=== PATIENT | male | born 1950 | race Caucasian/White ===

== ENCOUNTER 2016-10-08 20:04 | Inpatient (IN) ==
[2016-10-08] MEDS ORDERED: ONDANSETRON ODT 4 MG TABLET PO STA (20:44)
[2016-10-08] MEDS ORDERED: HYDROmorphone 2 MG/1 ML VIAL IV STA (20:44)
[2016-10-08] MEDS ORDERED: ONDANSETRON 4 MG/2 ML VIAL ONE (20:51)
[2016-10-08] MEDS ORDERED: HYDROmorphone 2 MG/1 ML VIAL ONE (20:52)
[2016-10-08] MEDS ORDERED: ONDANSETRON 4 MG/2 ML VIAL IV STA (20:55)
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
[2016-10-08 21:02] LABS: Basophils % 0.3 % (0.0-0.8); Eosinophils # 0.1 10*3/uL (0.0-0.87); Eosinophils % 1.3 % (0.00-10.9); Hematocrit 26.2 VOL% (42.0-52.0); Hemoglobin 7.4 GM/DL (14.0-18.0); Immature Granulocytes % 0.7 %; Immature Granulocytes Absolute 0.07 #; Lymphocytes # 0.6 10*3/uL (1.4-4.0); Lymphocytes % 5.9 % (21.2-54.2); Mean Corpuscular HGB Conc 28.2 GM/DL (32-36); Mean Corpuscular Hemoglobin 19 PG (27-34); Mean Corpuscular Volume 67.4 FL (87-102); Mean Platelet Volume 10.4 FL (9.6-12.0); Monocytes # 0.6 10*3/uL (0.11-0.8); Monocytes % 6.2 % (1.7-12.7); Neutrophils % 85.6 % (38.7-73.9); Platelet Count 108 T/CUMM (130-400); Red Blood Count 3.89 MC/CUMM (3.8-5.5); Red Cell Distribution Width 20.3 % (9.3-17.3); White Blood Count 9.4 T/CUMM (4-12)
[2016-10-08 21:28] LABS: Albumin 3.1 G/DL (3.4-5.0); Bilirubin,Total 0.4 MG/DL (0.2-1.0); Calcium 8.7 MG/DL (8.5-10.1); Osmolality,Calculated 273.1 MOS/KG (273-304); Potassium 4.7 MMOL/L (3.5-5.1); Total Protein 6.7 G/DL (6.4-8.3)
[2016-10-08 21:49] LABS: Hypochromasia 2+; Ovalocytes Few; Poikilocytosis 1+; Tear Drop Cells Few
[2016-10-08 21:50] LABS: Microcytosis 2+; Platelet Estimate Decreased
[2016-10-08] MEDS ORDERED: ACETAMINOPHEN 325 MG TABLET PO PRN (21:50)
[2016-10-08] MEDS ORDERED: PROMETHAZINE 25 MG/1 ML VIAL IM PRN (21:50)
[2016-10-08] MEDS ORDERED: ONDANSETRON 4 MG/2 ML VIAL IV PRN (21:50)
[2016-10-08] MEDS ORDERED: SODIUM CHLORIDE 0.9% 1,000 ML IV SCH (22:00)
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
[2016-10-08] MEDS: HYDROmorphone 2 MG/1 ML VIAL IV PRN (23:33)
[2016-10-09] MEDS ORDERED: SODIUM CHLORIDE 0.9% 250 ML IV PRN (01:09)
[2016-10-09] MEDS: HYDROmorphone 2 MG/1 ML VIAL IV PRN ×3 (04:17→11:12)
--- NOTE | 2016-10-09 07:13 | XRay Report ---
Portable chest. Indication: Arrhythmia. Comparison: September 30, 2013. The heart is enlarged. There is calcific plaque present within the aortic knob. The pulmonary vasculature is normal. The lung carter are free of infiltrate. Calcified lymph node in the left hilum. Osseous structures are stable. Impression: Cardiomegaly. PROCEDURE INTERPRETED AT [facility] DEPARTMENT OF RADIOLOGY Final Report Signed by: Dr. Tana Rudolph
--- NOTE | 2016-10-09 07:25 | XRay Report ---
AP pelvis +2 views of the right hip. Indication: Injury with pain. There is an acute comminuted, displaced, and medially angulated fracture of the trochanteric portion of the right femur. The right femoral head remains well-seated within the acetabulum. There is an intramedullary chilo within the left femur. The osseous structures are diffusely demineralized. Degenerative changes are noted at both hips. Impression: Acute fracture of the right intertrochanteric femur. PROCEDURE INTERPRETED AT [facility] DEPARTMENT OF RADIOLOGY Final Report Signed by: Dr. Tana Rudolph
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
[2016-10-09] MEDS ORDERED: FUROSEMIDE 40 MG/4 ML VIAL IV ONE (08:30)
[2016-10-09] MEDS: CARVEDILOL 3.125 MG TABLET PO SCH ×2 (09:59→20:02)
[2016-10-09] MEDS: PANTOPRAZOLE 40 MG TABLET PO SCH (09:59)
--- NOTE | 2016-10-09 11:49 | EKG Report ---
Stationary ECG Study [facility] ER Test Date: 10/08/2016 9:37:14 PM Pat Name: SABI FAULKNER Department: Room: 322 Gender: M Set Rider: : 1950 Requested by: Venancio Gonzalez Order Number: [id number] Reading MD: BEV VILLALOBOS Intervals [place] Rate: 93 P: 47 SD: 156 QRS: -8 QRSD: 97 T: 92 QT: 363 QTc: 414 Interpretive Statements SINUS RHYTHM WITH FREQUENT VENTRICULAR PREMATURE COMPLEXES, trigeminy POSSIBLE SEPTAL MYOCARDIAL INFARCTION, OF INDETERMINATE AGE Electronically Signed On 10-09-16 13:43:26 CDT by BEV VILLALOBOS [email or web address]
[2016-10-09] MEDS ORDERED: HYDROmorphone 2 MG/1 ML VIAL IV PRN (12:43)
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
[2016-10-09] MEDS: ASPIRIN CHEW 81 MG TABLET PO SCH (14:09)
--- NOTE | 2016-10-09 14:32 | EKG Report ---
Stationary ECG Study [facility] Test Date: 10/09/2016 2:32:47 PM Pat Name: SABI FAULKNER Department: Room: 322 Gender: M Account Support Specialist: CORINNE : 1950 Requested by: Frankie Castaneda Order Number: [id number] Reading MD: BEV VILLALOBOS Intervals [place] Rate: 92 P: 46 MI: 184 QRS: -3 QRSD: 100 T: 80 QT: 345 QTc: 394 Interpretive Statements SINUS RHYTHM WITH FREQUENT VENTRICULAR PREMATURE COMPLEXES LEFT VENTRICULAR HYPERTROPHY AND ST-T CHANGE Electronically Signed On 10-10-16 06:28:19 CDT by BEV VILLALOBOS [email or web address]
[2016-10-09] MEDS ORDERED: NALOXONE 0.4 MG/ML VIAL ONE ×2 (15:07→15:17)
[2016-10-09 15:15] LABS: ABG Base Excess -1.3 MMOL/L (-2.5-2.5); ABG HCO3 32.9 MMOL/L (20-26); ABG Oxygen Saturation 88.2 % (95-100); ABG PO2 79.3 MM HG (80-95); ABG TCO2 37.4 MMOL/L (23-27)
[2016-10-09 15:23] LABS: ABG PH 6.969 (7.35-7.45)
[2016-10-09 15:24] LABS: ABG PCO2 146.6 MM HG (35-48)
[2016-10-09] MEDS ORDERED: ALBUTEROL 1.25 MG/3 ML NEB RESP TX PRN (15:41)
--- NOTE | 2016-10-09 15:52 | XRay Report ---
Portable chest. Indication: Shortness of breath. Comparison: October 08, 2016. The heart is mildly enlarged. The pulmonary vasculature is normal. The lung carter are clear. No pneumothorax or pleural effusion. Impression: Mild cardiomegaly. PROCEDURE INTERPRETED AT [facility] DEPARTMENT OF RADIOLOGY Final Report Signed by: Dr. Tana Rudolph
[2016-10-09] MEDS ORDERED: NALOXONE 0.4 MG/ML VIAL IV ONE (15:58)
[2016-10-09 17:12] LABS: Basophils % 0.2 % (0.0-0.8); Eosinophils % 0.3 % (0.00-10.9); Hemoglobin 8.7 GM/DL (14.0-18.0); Immature Granulocytes % 0.6 %; Lymphocytes # 0.5 10*3/uL (1.4-4.0); Mean Corpuscular HGB Conc 27.6 GM/DL (32-36); Mean Corpuscular Hemoglobin 20 PG (27-34); Mean Corpuscular Volume 73.8 FL (87-102); Monocytes # 1.1 10*3/uL (0.11-0.8); Neutrophils # 13.8 10*3/uL (1.4-7.4); Neutrophils % 88.9 % (38.7-73.9); Platelet Count 158 T/CUMM (130-400); Red Blood Count 4.27 MC/CUMM (3.8-5.5); Red Cell Distribution Width 20.3 % (9.3-17.3); White Blood Count 15.5 T/CUMM (4-12)
[2016-10-09 17:13] LABS: Hematocrit 31.5 VOL% (42.0-52.0)
[2016-10-09 17:19] LABS: Albumin 3.1 G/DL (3.4-5.0); Bilirubin,Total 1.1 MG/DL (0.2-1.0); Calcium 8.4 MG/DL (8.5-10.1); Magnesium 1.7 MG/DL (1.8-2.4); Osmolality,Calculated 272.2 MOS/KG (273-304); Potassium 5.4 MMOL/L (3.5-5.1); Risk Ratio 2.45; Thyroid Stimulating Hormone 0.684 uIU/ml (0.358-3.74)
[2016-10-09] MEDS ORDERED: MAGNESIUM SULF RIDER 2 GM in PREMIX 1 EACH IV ONE (17:23)
[2016-10-09] MEDS ORDERED: SODIUM CHLORIDE 0.45% 1,000 ML IV SCH (17:30)
--- NOTE | 2016-10-09 17:40 | Event Note ---
Mr. Dueñas, earlier in the day had increasing pain for which she received IV Dilaudid. Later he became less responsive with dropping O2 sats and received increasing oxygen followed by Narcan from which he awakened. Chest x-ray revealed no significant changes however arterial blood gases revealed significant CO2 retention with respiratory acidosis. He was placed on BiPAP however on my arrival to the room he is sitting up in the bed comfortable with O2 per nasal cannula. He is awake alert and oriented 3. He denies any chest pain or shortness of breath. On physical exam he has regular rate and rhythm without murmur. Lungs reveal scattered expiratory wheeze. Abdomen soft nontender. Extremities without clubbing cyanosis or edema. Follow-up arterial blood gases are pending at this time. Suspect this earlier episode was secondary to sedation with probable obstructive sleep apnea/OHS. He likely has a component of COPD as well. We will continue low-dose O2 along with nebulizer therapy. BiPAP as needed. Pulmonary has been consulted to assist with his care and management preop and postoperatively.
[2016-10-09] MEDS: SODIUM CHLORIDE 0.9% 1,000 ML IV SCH (18:11)
[2016-10-09 18:53] LABS: ABG Base Excess 1.4 MMOL/L (-2.5-2.5); ABG HCO3 28.6 MMOL/L (20-26); ABG Oxygen Saturation 94.3 % (95-100); ABG PCO2 60.2 MM HG (35-48); ABG PH 7.294 (7.35-7.45); ABG PO2 73.5 MM HG (80-95); ABG TCO2 30.4 MMOL/L (23-27); Allen Test Positive; Pt O2 Delivery Device BIPAP
[2016-10-09] MEDS: IPRATROPIUM 500 MCG/2.5 ML NEB RESP TX SCH (20:29)
[2016-10-09] MEDS: KETOROLAC 30 MG/1 ML VIAL IV PRN (21:06)
[2016-10-10] MEDS: IPRATROPIUM 500 MCG/2.5 ML NEB RESP TX SCH ×4 (00:52→19:25)
[2016-10-10] MEDS: SODIUM CHLORIDE 0.9% 1,000 ML IV SCH ×4 (03:49→23:06)
[2016-10-10 06:13] LABS: Osmolality,Calculated 271.4 MOS/KG (273-304); Potassium 5.2 MMOL/L (3.5-5.1)
[2016-10-10] MEDS: KETOROLAC 30 MG/1 ML VIAL IV PRN (06:45)
--- NOTE | 2016-10-10 06:58 | Hospitalist Progress Note ---
Assessment and Plan - Time spent with patient Time spent with patient: Less than 30 minutes (1) Hip fracture Status: Acute Assessment and plan: Patient sustained right hip fracture yesterday. Orthopedics has been consulted to assist with repair. 10/10/16: Plans for operative repair. Patient has been seen and evaluated by cardiology. Pulmonary consultation is currently pending as he did have an event yesterday with significant CO2 retention and respiratory acidosis. He is currently being maintained on BiPAP. Will follow up blood gas and await further recommendations from pulmonary service. Current Visit: Yes Qualifiers: Encounter type: initial encounter Fracture type: closed Laterality: right Qualified Code(s): S72.001A - Fracture of unspecified part of neck of right femur, initial encounter for closed fracture (2) AVM (arteriovenous malformation) of colon Status: Chronic Assessment and plan: Patient notes a history of GI bleeding secondary to AV malformations of the colon however this was approximately 5 years ago and he has had no recurrent bleeding by history. Current Visit: Yes (3) Anemia Status: Acute Assessment and plan: Patient received transfusion 2 units packed red blood cells last evening. Follow-up CBC is currently pending. Current Visit: Yes Qualifiers: Anemia type: unspecified type Qualified Code(s): D64.9 - Anemia, unspecified (4) Alcoholic cirrhosis of liver Status: Chronic Assessment and plan: He states he discontinued drinking approximately 5 years ago. He takes no routine medications and has had no recent issues. Current Visit: Yes Hospitalist: Subjective Interval history: Patient denies any chest pain or shortness of breath. He did sleep with BiPAP overnight. He is currently awake alert oriented and having no issues. Exam - Constitutional Vitals: Period Temp Pulse Resp BP Sys/Gates Pulse Ox Last 24 Hr 96.9 F-98.5 F 44-107 18-22 118-196/46-88 91-99 General appearance: no acute distress - Head Head exam: Present: normocephalic, atraumatic - Eye Eye exam: Present: EOMI Pupils: Present: JAVED - ENT ENT exam: Present: normal exam - Neck Neck exam: Absent: lymphadenopathy, meningismus, tenderness, thyromegaly - Respiratory Respiratory exam: Present: clear to auscultation bilaterally. Absent: rales, rhonchi, wheezes - Cardiovascular Cardiovascular exam: Present: regular rate and rhythm. Absent: tachycardia - GI/Abdominal GI/Abdominal exam: Present: normal bowel sounds, soft. Absent: mass, tenderness , rebound - Extremities Exam Extremities exam: Absent: calf tenderness, edema - Back Exam Back exam: Present: normal inspection - Neurological Exam Neurological exam: Present: alert, oriented X3, CN II-XII intact. Absent: motor sensory deficit - Psychiatric Psychiatric exam: Present: normal affect, normal mood. Absent: agitated, anxious - Skin Skin exam: Present: warm, dry. Absent: rash Results - Labs CBC & BMP: 10/09/16 16:34 10/10/16 05:23 Lab Results: I have reviewed the past 24 hour labs - Diagnostic Findings Procedure: Chest x-ray: report reviewed by me Quality Measures - VTE Contraindication to Pharmacological VTE Prophylaxis: Thrombocytopenia
[2016-10-10 07:04] LABS: Basophils % 0.2 % (0.0-0.8); Eosinophils % 0.5 % (0.00-10.9); Hematocrit 27.5 VOL% (42.0-52.0); Hemoglobin 7.8 GM/DL (14.0-18.0); Immature Granulocytes % 0.5 %; Immature Granulocytes Absolute 0.04 #; Lymphocytes # 0.7 10*3/uL (1.4-4.0); Lymphocytes % 7.5 % (21.2-54.2); Mean Corpuscular HGB Conc 28.4 GM/DL (32-36); Mean Corpuscular Hemoglobin 20 PG (27-34); Mean Corpuscular Volume 71.1 FL (87-102); Mean Platelet Volume 10.4 FL (9.6-12.0); Monocytes # 0.7 10*3/uL (0.11-0.8); Monocytes % 7.6 % (1.7-12.7); Neutrophils # 7.4 10*3/uL (1.4-7.4); Neutrophils % 83.7 % (38.7-73.9); Platelet Count 109 T/CUMM (130-400); Red Blood Count 3.87 MC/CUMM (3.8-5.5); Red Cell Distribution Width 20.4 % (9.3-17.3); White Blood Count 8.8 T/CUMM (4-12)
[2016-10-10 07:43] LABS: ABG Base Excess 1.9 MMOL/L (-2.5-2.5); ABG HCO3 25.9 MMOL/L (20-26); ABG Oxygen Saturation 85.1 % (95-100); ABG PCO2 48.8 MM HG (35-48); ABG PH 7.362 (7.35-7.45); ABG PO2 51.2 MM HG (80-95); ABG TCO2 26.1 MMOL/L (23-27)
[2016-10-10 07:44] LABS: Hypochromasia 2+; Microcytosis 1+; Spherocytes Few
[2016-10-10 07:47] LABS: Basophils % 0.2 % (0.0-0.8); Eosinophils # 0.1 10*3/uL (0.0-0.87); Eosinophils % 0.6 % (0.00-10.9); Hematocrit 27.3 VOL% (42.0-52.0); Hemoglobin 7.6 GM/DL (14.0-18.0); Immature Granulocytes % 0.4 %; Immature Granulocytes Absolute 0.04 #; Lymphocytes # 0.8 10*3/uL (1.4-4.0); Lymphocytes % 8.4 % (21.2-54.2); Mean Corpuscular HGB Conc 27.8 GM/DL (32-36); Mean Corpuscular Hemoglobin 20 PG (27-34); Mean Corpuscular Volume 71.8 FL (87-102); Mean Platelet Volume 10.2 FL (9.6-12.0); Monocytes # 0.8 10*3/uL (0.11-0.8); Monocytes % 8.6 % (1.7-12.7); Neutrophils # 7.3 10*3/uL (1.4-7.4); Neutrophils % 81.8 % (38.7-73.9); Platelet Count 104 T/CUMM (130-400); Red Cell Distribution Width 20.2 % (9.3-17.3)
[2016-10-10] MEDS ORDERED: PROPOFOL 200 MG/20 ML VIAL IV ONE (07:49)
--- NOTE | 2016-10-10 07:51 | Orthopedic Progress Note ---
Assessment and Plan (1) Anemia Status: Acute Current Visit: Yes Qualifiers: Anemia type: unspecified type Qualified Code(s): D64.9 - Anemia, unspecified (2) Hip fracture Status: Acute Assessment and plan: Patient has been cleared for surgery by cardiology and medicine Surgery as well as the risks and benefits was discussed again in detail with the patient. All questions answered to his satisfaction Patient go to the OR this morning. Right hip was verified with the patient as correct site and marked with yes and my initials Current Visit: Yes Qualifiers: Encounter type: initial encounter Fracture type: closed Laterality: right Qualified Code(s): S72.001A - Fracture of unspecified part of neck of right femur, initial encounter for closed fracture (3) Morbid obesity Status: Acute Current Visit: Yes Orthopedics - Subjective Interval history: Patient seen and examined. Complains right hip pain. Denies other complaints. Exam - Constitutional Vitals: Period Temp Pulse Resp BP Sys/Gates Pulse Ox Last 24 Hr 96.9 F-98.5 F 44-107 18-22 118-196/46-88 91-99 General appearance: no acute distress - Extremities Exam Extremities exam: Present: normal inspection (Right lower extremity: Leg is shortened and externally rotated compared to the left. Compartments soft. Sensation intact. Full active range of motion foot and ankle. Cap refill brisk ) Results - Labs CBC & BMP: 10/10/16 07:00 10/10/16 05:23 Lab Results: I have reviewed the past 24 hour labs - Diagnostic Findings Procedure: X-ray: image reviewed by me, report reviewed by me Quality Measures - VTE Contraindication to Pharmacological VTE Prophylaxis: Thrombocytopenia
[2016-10-10] MEDS ORDERED: ceFAZolin 1,000 MG VIAL ONE (08:38)
--- NOTE | 2016-10-10 09:05 | Event Note ---
Notified of consult late last night. Patient in with hip fracture, apparently was given dilaudid and later became unresponsive. An ABG showed a severe respiratory acidosis. He was given Narcan and placed on bipap. He recovered quickly and when I was called, nursing reported that he was awake, talking normally with no complaints. Patient has already gone to the OR for surgery. There is no documented pulmonary disease, including COPD or LILA. If there is clincial suspicion for this, anesthesia can consider extubating to CPAP after surgery. However, there is no specific perioperative recommendations for other management, except minimize sedating medications as patient as already proved sensitive to this. Will try and see patient after surgery. If there are specific questions, please call me directly
--- NOTE | 2016-10-10 10:29 | XRay Report ---
Intraoperative fluoroscopy with digital images of the right hip. Indication: Right hip fracture. Fluoroscopy time, 198 seconds. 5 digital images were obtained which are presumed to serve the clinical purpose. They overlie the right proximal femur and show hardware placement. PROCEDURE INTERPRETED AT [facility] DEPARTMENT OF RADIOLOGY Final Report Signed by: Dr. Tana Rudolph
[2016-10-10] MEDS ORDERED: MAGNESIUM HYDROXIDE SUSP 30 ML UDCUP PO PRN (10:40)
--- NOTE | 2016-10-10 10:49 | Operative Note ---
Date of procedure: 10/10/16 Pre-op diagnosis: comminuted right intertrochanteric femur fracture Post-op diagnosis: other (1. Comminuted intertrochanteric femur fracture. #2 displaced greater trochanter fracture. #3 morbid obesity) Procedure: #1 open reduction internal fixation of comminuted intertrochanteric femur fracture with a DHS compression plate -complexity of the surgery was significant increased due to the patient's obesity #2 surgical fixation of the displaced greater trochanteric fracture with cerclage technique Difficulty/Complexity of the procedure: The surgery was significant and more difficult than a standard intertrochanteric hip fracture secondary to the patient's morbid obesity as well as a combination of the fracture. This required approximately 3-4 times the length of a normal surgery due to the amount of dissection, fixation of the fracture, and multiple layers of closure. There is also significant increased difficulty with visualization of the fracture with fluoroscopy due to the patient's significant soft tissues which required extended fluoroscopy time lengthening the procedure. Description of the procedure: After adequate anesthesia was obtained patient was placed on the fracture table. Fluoroscopy was utilized to reduce the fracture. Right leg was then prepped and draped usual sterile orthopedic fashion. Timeout taken. Ancef 2 g antibiotics was given prior to the start of surgery. Landmarks of the hip were identified under fluoroscopy. Initially a 8 cm incision was made just lateral to the greater trochanter. Dissection carried through multiple layers of subcutaneous tissue to the IT band. IT band split in line with the incision. Fracture was palpated digitally and noted to be significantly more comminuted than initially appeared on x-ray. There is a gap in the posterior aspect of the intertrochanteric fracture line. The leg was taken through internal, external rotation as well as different levels of traction to obtain a provisional reduction. A provisional guidewire was then inserted from the greater trochanteric into the femoral neck and head for provisional reduction of the fracture. At this time I decided that due to the size of the patient, comminution of the greater trochanter, and the angle of the leg to hold the reduction that a trochanteric nail would not be feasible. The incision was then carried distally to the level of the subtrochanteric region. Dissection carried down to the IT band and the IT band incised in line with the incision. Vastus lateralis was split and elevated off of the lateral proximal femoral cortex for visualization. 130 angled guidewire pin was inserted into the center center position of the femoral head and neck and visualized under multiplanar fluoroscopy. One center center position was achieved the guidewire measured 150 mm and a 95 mm screw was selected to allow for compression through the fracture. Cannulated drill was then inserted over the guidewire and the compression screw and plate inserted over the guidewire. Plate was then compressed to the proximal femur. Compression screws and inserted and achieved and confirmed under multiplanar fluoroscopy. The remaining 2 screws were then placed in the plate. On x-ray of the greater trochanter was still displaced. I did extend the incision proximally and IT band incised proximally as well. A #5 Tycron suture was then placed in cerclage fashion underneath the abductor tendons and sutured into the soft tissue proximal femur. Near-anatomic reduction was achieved of the greater trochanteric fracture. Incision was then copiously irrigated and debrided with normal saline. Vastus lateralis was closed with a running #1 Vicryl suture. IT band closed with #1 Vicryl. A total of 3 layers of #0 Vicryl suture was utilized to close the significant deep subcutaneous layer. Subcutaneous absorbable clips were used for the superficial subcutaneous layer. Tony used for the skin. Sterile silver impregnated dressing was applied. Patient was taken the PACU in stable condition Implants: Synthes DHS 3-hole plate with a 95 mm compression screw Anesthesia: spinal Surgeon / Physician: Zack Lizarraga Estimated blood loss: other (500ml) Specimens: none sent Condition: stable Disposition: PACU Results - Labs CBC & BMP: 10/10/16 07:44 10/10/16 05:23 Discharge Plan - Discharge Medications No Action No Known Home Medications [No Known Home Medications] - Follow Up or Referral - Forms/Instructions
--- NOTE | 2016-10-10 11:01 | Cardiology Progress Note ---
Assessment and Plan (1) Ventricular bigeminy Status: Acute Assessment and plan: This could be a normal finding, electrolyte abnormality, ischemia, LV systolic dysfunction So far no electrolyte abnormalities Plan/recommendation echo-evaluate LV function Check electrolytes Aspirin 81 mg 1 daily Carvedilol 3.125 mg p.o. twice daily. I discussed with the patient the benefits of stopping tobacco/nicotine, the problems with continuing to use it, and options of treatment. The patient is considering this option. He probably has untreated obstructive sleep apnea. I will discuss it with him later about getting evaluated and treated. Thank you for allowing me to participate in this patient's care 10/10/16 On exam heart rate was 44 but I believe the techs were feeling every other beat. Giving a trial of the carvedilol Echo/Doppler is pending His ABGs reveal the suspected chronic respiratory insufficiency/chronic bronchitis/probable obstructive sleep apnea His magnesium is now normal. His potassium is slightly high. Monitor rhythm. Current Visit: Yes (2) Anemia Status: Acute Current Visit: Yes Qualifiers: Anemia type: unspecified type Qualified Code(s): D64.9 - Anemia, unspecified (3) Cardiac dysrhythmia Status: Acute Current Visit: Yes Qualifiers: Arrhythmia type: unspecified cardiac arrhythmia Qualified Code(s): I49.9 - Cardiac arrhythmia, unspecified (4) Diastolic CHF Status: Acute Current Visit: Yes (5) Hip fracture Status: Acute Current Visit: Yes Qualifiers: Encounter type: initial encounter Fracture type: closed Laterality: right Qualified Code(s): S72.001A - Fracture of unspecified part of neck of right femur, initial encounter for closed fracture (6) Morbid obesity Status: Acute Current Visit: Yes (7) Obstructive sleep apnea Status: Acute Current Visit: Yes (8) AVM (arteriovenous malformation) of colon Status: Chronic Current Visit: Yes (9) Alcoholic cirrhosis of liver Status: Chronic Current Visit: Yes Cardiology - PN: Subj Interval history: Patient is awake postop in recovery room. No chest pain or palpitations. Exam (Progress Note) - Constitutional Vitals: Period Temp Pulse Resp BP Sys/Gates Pulse Ox Last 24 Hr 96.9 F-98.5 F 44-107 18-22 118-196/46-88 91-99 Exam: HEENT: Pupils equal, reactive to light and accommodation Neck: NoJVD or bruit Lungs clear to auscultation Heart: Regular rhythm rate with normal S1 and S2. Apical S4 Abdomen: No hepatosplenomegaly Spine/extremities: No clubbing, cyanosis, or edema Neuro: Nonfocal Psych: No depression or anxiety Result/EKG - Labs CBC & BMP: 10/10/16 07:44 10/10/16 05:23 Labs: Laboratory Results - last 24 hr 10/09/16 10/09/16 10/09/16 00:00 14:19 15:10 WBC RBC Hgb Hct MCV MCH MCHC RDW Plt Count MPV Neut % (Auto) Lymph % (Auto) [facility] % (Auto) Eos % (Auto) Baso % (Auto) Neut # (Auto) Lymph # (Auto) [facility] # (Auto) Eos # (Auto) Baso # (Auto) Immature Gran % Nucleated RBC % Immature Gran # Nucleated RBCs # Hypochromasia Microcytosis Spherocytes ABG pH 6.969 L* ABG pCO2 146.6 H* ABG pO2 79.3 L ABG HCO3 32.9 H ABG Total CO2 37.4 H ABG O2 Saturation 88.2 L ABG Base Excess -1.3 FiO2 Sodium Potassium Chloride Carbon Dioxide Anion Gap BUN Creatinine GFR Calculation BUN/Creatinine Ratio Glucose POC Glucose 167 H Hemoglobin A1c Calculated Osmolality Calcium Magnesium Total Bilirubin AST ALT Alkaline Phosphatase Total Protein Albumin Globulin Albumin/Globulin Ratio Triglycerides Cholesterol LDL Cholesterol VLDL Cholesterol HDL Cholesterol Heart Disease Risk Ratio Free T4 TSH 3rd Generation Blood Type Cancelled Antibody Screen Cancelled Crossmatch See Detail Blood Bank Comment Cancelled 10/09/16 10/09/16 10/09/16 16:34 16:34 16:34 WBC RBC Hgb Hct MCV MCH MCHC RDW Plt Count MPV Neut % (Auto) Lymph % (Auto) [facility] % (Auto) Eos % (Auto) Baso % (Auto) Neut # (Auto) Lymph # (Auto) [facility] # (Auto) Eos # (Auto) Baso # (Auto) Immature Gran % Nucleated RBC % Immature Gran # Nucleated RBCs # Hypochromasia Microcytosis Spherocytes ABG pH ABG pCO2 ABG pO2 ABG HCO3 ABG Total CO2 ABG O2 Saturation ABG Base Excess FiO2 Sodium 134 L Potassium 5.4 H Chloride 98 Carbon Dioxide 29 Anion Gap 12.4 BUN 18 Creatinine 0.80 GFR Calculation 136 BUN/Creatinine Ratio 22.00 H Glucose 146 H POC Glucose Hemoglobin A1c 4.9 Calculated Osmolality 272.2 L Calcium 8.4 L Magnesium 1.7 L Total Bilirubin 1.10 H AST 17 ALT 17 Alkaline Phosphatase 72 Total Protein 7.0 Albumin 3.1 L Globulin 3.9 H Albumin/Globulin Ratio 0.7 L Triglycerides 85 Cholesterol 130 LDL Cholesterol 57.0 VLDL Cholesterol 17.0 HDL Cholesterol 53 Heart Disease Risk Ratio 2.45 Free T4 1.31 TSH 3rd Generation 0.684 Blood Type Antibody Screen Crossmatch Blood Bank Comment 10/09/16 10/09/16 10/10/16 16:34 18:49 05:23 WBC 15.5 H D RBC 4.27 Hgb 8.7 L Hct 31.5 L MCV 73.8 L MCH 20 L MCHC 27.6 L RDW 20.3 H Plt Count 158 D MPV 10.0 Neut % (Auto) 88.9 H Lymph % (Auto) 3.[address] [place] [facility] % (Auto) 7.0 Eos % (Auto) 0.3 Baso % (Auto) 0.2 Neut # (Auto) 13.8 H Lymph # (Auto) 0.[address] # (Auto) 1.1 H Eos # (Auto) 0.0 Baso # (Auto) 0.0 Immature Gran % 0.6 Nucleated RBC % 0.0 Immature Gran # 0.10 Nucleated RBCs # 0.00 Hypochromasia Microcytosis Spherocytes ABG pH 7.294 L ABG pCO2 60.2 H ABG pO2 73.5 L ABG HCO3 28.6 H ABG Total CO2 30.4 H ABG O2 Saturation 94.3 L ABG Base Excess 1.4 FiO2 40.00 Sodium 133 L Potassium 5.2 H Chloride 99 Carbon Dioxide 26 Anion Gap 13.2 BUN 24 H Creatinine 0.80 GFR Calculation 136 BUN/Creatinine Ratio 30.00 H Glucose 127 H POC Glucose Hemoglobin A1c Calculated Osmolality 271.4 L Calcium 8.0 L Magnesium Total Bilirubin AST ALT Alkaline Phosphatase Total Protein Albumin Globulin Albumin/Globulin Ratio Triglycerides Cholesterol LDL Cholesterol VLDL Cholesterol HDL Cholesterol Heart Disease Risk Ratio Free T4 TSH 3rd Generation Blood Type Antibody Screen Crossmatch Blood Bank Comment 10/10/16 10/10/16 10/10/16 05:23 06:57 07:00 WBC 8.8 D RBC 3.87 Hgb 7.8 L Hct 27.5 L MCV 71.1 L MCH 20 L MCHC 28.4 L RDW 20.4 H Plt Count 109 L D MPV 10.4 Neut % (Auto) 83.7 H Lymph % (Auto) 7.[address] % (Auto) 7.6 Eos % (Auto) 0.5 Baso % (Auto) 0.2 Neut # (Auto) 7.4 Lymph # (Auto) 0.[address] # (Auto) 0.7 Eos # (Auto) 0.0 Baso # (Auto) 0.0 Immature Gran % 0.5 Nucleated RBC % 0.0 Immature Gran # 0.04 Nucleated RBCs # 0.00 Hypochromasia 2+ Microcytosis 1+ Spherocytes Few ABG pH ABG pCO2 ABG pO2 ABG HCO3 ABG Total CO2 ABG O2 Saturation ABG Base Excess FiO2 Sodium Potassium Chloride Carbon Dioxide Anion Gap BUN Creatinine GFR Calculation BUN/Creatinine Ratio Glucose POC Glucose 144 H Hemoglobin A1c Calculated Osmolality Calcium Magnesium 2.3 Total Bilirubin AST ALT Alkaline Phosphatase Total Protein Albumin Globulin Albumin/Globulin Ratio Triglycerides Cholesterol LDL Cholesterol VLDL Cholesterol HDL Cholesterol Heart Disease Risk Ratio Free T4 TSH 3rd Generation Blood Type Antibody Screen Crossmatch Blood Bank Comment 10/10/16 10/10/16 07:30 07:44 WBC 9.0 RBC 3.80 Hgb 7.6 L Hct 27.3 L MCV 71.8 L MCH 20 L MCHC 27.8 L RDW 20.2 H Plt Count 104 L MPV 10.2 Neut % (Auto) 81.8 H Lymph % (Auto) 8.[address] % (Auto) 8.6 Eos % (Auto) 0.6 Baso % (Auto) 0.2 Neut # (Auto) 7.3 Lymph # (Auto) 0.[address] [facility] # (Auto) 0.8 Eos # (Auto) 0.1 Baso # (Auto) 0.0 Immature Gran % 0.4 Nucleated RBC % 0.0 Immature Gran # 0.04 Nucleated RBCs # 0.00 Hypochromasia Microcytosis Spherocytes ABG pH 7.362 ABG pCO2 48.8 H ABG pO2 51.2 L ABG HCO3 25.9 ABG Total CO2 26.1 ABG O2 Saturation 85.1 L ABG Base Excess 1.9 FiO2 Sodium Potassium Chloride Carbon Dioxide Anion Gap BUN Creatinine GFR Calculation BUN/Creatinine Ratio Glucose POC Glucose Hemoglobin A1c Calculated Osmolality Calcium Magnesium Total Bilirubin AST ALT Alkaline Phosphatase Total Protein Albumin Globulin Albumin/Globulin Ratio Triglycerides Cholesterol LDL Cholesterol VLDL Cholesterol HDL Cholesterol Heart Disease Risk Ratio Free T4 TSH 3rd Generation Blood Type Antibody Screen Crossmatch Blood Bank Comment - EKG EKG results: interpreted by me Quality Measures - VTE Contraindication to Pharmacological VTE Prophylaxis: Thrombocytopenia
[2016-10-10 11:05] LABS: Basophils % 0.2 % (0.0-0.8); Eosinophils # 0.1 10*3/uL (0.0-0.87); Eosinophils % 0.5 % (0.00-10.9); Hemoglobin 8.8 GM/DL (14.0-18.0); Immature Granulocytes % 0.9 %; Immature Granulocytes Absolute 0.16 #; Lymphocytes # 1.2 10*3/uL (1.4-4.0); Lymphocytes % 6.9 % (21.2-54.2); Mean Corpuscular HGB Conc 28.4 GM/DL (32-36); Mean Corpuscular Hemoglobin 21 PG (27-34); Mean Corpuscular Volume 74.7 FL (87-102); Mean Platelet Volume 10.2 FL (9.6-12.0); Monocytes # 1.2 10*3/uL (0.11-0.8); Monocytes % 6.7 % (1.7-12.7); NRBC # 0.02 10*3/uL; Neutrophils # 14.6 10*3/uL (1.4-7.4); Neutrophils % 84.8 % (38.7-73.9); Platelet Count 154 T/CUMM (130-400); Red Blood Count 4.15 MC/CUMM (3.8-5.5); Red Cell Distribution Width 21.2 % (9.3-17.3); White Blood Count 17.2 T/CUMM (4-12)
--- NOTE | 2016-10-10 11:55 | XRay Report ---
Single view the right hip. Indication: Open reduction and internal fixation of right hip fracture. Surgical skin sole overlie the soft tissues. A plate and screw device has been placed to stabilize the right intertrochanteric femur fracture. Hardware appears to be in good position. No evidence of dislocation. Impression: Expected postoperative appearance. PROCEDURE INTERPRETED AT [facility] DEPARTMENT OF RADIOLOGY Final Report Signed by: Dr. Tana Rudolph
[2016-10-10] MEDS: CARVEDILOL 3.125 MG TABLET PO SCH ×2 (12:05→22:05)
[2016-10-10] MEDS ORDERED: MIDAZOLAM 2 MG/2 ML VIAL ONE (13:34)
[2016-10-10] MEDS ORDERED: fentaNYL 100 MCG/2 ML VIAL ONE (13:34)
[2016-10-10] MEDS ORDERED: KETAMINE 500 MG/10 ML VIAL ONE (13:34)
[2016-10-10] MEDS: PANTOPRAZOLE 40 MG TABLET PO SCH (14:55)
[2016-10-10] MEDS: oxyCODONE/ACETAMINOPHEN 5-325 MG TABLET PO PRN ×2 (14:55→20:33)
[2016-10-10] MEDS: ASPIRIN CHEW 81 MG TABLET PO SCH (14:55)
--- NOTE | 2016-10-10 15:49 | ECHO Report ---
Marcos Dueñas Exam Date: 10/10/2016 11:16 Referring Physician: Technologist: Savi Laughlin Age: 66 Ht (in): 72 Wt (lb): 306 Gender: M Exam Location: [facility] Echo Indications: s/p surg right hip fracture, anemia, dysrhythmia, alcoholic, cirrhosis, AVM, LILA BP: 116 / 96 HR: 80 Rhythm: PVCs Technical Quality: Technically difficult study IMPRESSIONS Moderate concentric left ventricular hypertrophy with diastolic dysfunction. Left ventricular ejection fraction is estimated at > 55 %. 3+ increased left atrial diameter. Mild mitral annular and leaflet calcification with mild mitral regurgitation. Mild aortic valve sclerosis without stenosis or regurgitation. Azup-ig-bevieqdh tricuspid valve regurgitation. Tricuspid regurgitation velocities suggest a PAP of 34 mmHg. MEASUREMENTS (Male / Female) Normal Values 2D ECHO LV Diastolic Diameter PLAX 4.0 cm 4.2 - 5.9 / 3.9 - 5.3 cm LV Systolic Diameter PLAX 2.4 cm LV Fractional Shortening PLAX 39.9 % IVS Diastolic Thickness 2.3 cm 0.6 - 1.0 / 0.6 - 0.9 cm LVPW Diastolic Thickness 2.0 cm 0.6 - 1.0 / 0.6 - 0.9 cm RV Internal Dim ED PLAX 2.7 cm Aortic Root Diameter 3.3 cm LA Systolic Diameter LX 5.8 cm 3.0 - 4.0 / 2.7 - 3.8 cm DOPPLER TR Peak Velocity 247.0 cm/s TR Peak Gradient 24.4 mmHg FINDINGS Left Ventricle 3+ increased septal wall thickness. Moderate concentric left ventricular hypertrophy with diastolic dysfunction. Left ventricular ejection fraction is estimated at > 55 %. Right Ventricle Normal right ventricular size. Right Atrium Normal right atrial size. Left Atrium 3+ increased left atrial diameter. Mitral Valve Mild mitral annular and leaflet calcification with mild mitral regurgitation. Aortic Valve Mild aortic valve sclerosis without stenosis or regurgitation. Tricuspid Valve Morphologically normal tricuspid valve. Fftt-fb-yndfiggy tricuspid valve regurgitation. Tricuspid regurgitation velocities suggest a PAP of 34 mmHg. Pulmonic Valve Pulmonic valve not well visualized. Pericardium No pericardial effusion. Aorta Normal size aortic root and proximal ascending aorta. Frankie Castaneda MD (Electronically Signed) Final Date: 10 October 2016 15:49
[2016-10-10] MEDS: ceFAZolin 2,000 MG in PREMIX 1 EACH IV SCH (17:30)
[2016-10-11] MEDS: oxyCODONE/ACETAMINOPHEN 5-325 MG TABLET PO PRN ×4 (00:15→22:55)
[2016-10-11] MEDS: IPRATROPIUM 500 MCG/2.5 ML NEB RESP TX SCH ×2 (00:16→07:57)
[2016-10-11] MEDS: ceFAZolin 2,000 MG in PREMIX 1 EACH IV SCH (01:25)
[2016-10-11 05:45] LABS: Basophils % 0.4 % (0.0-0.8); Eosinophils # 0.2 10*3/uL (0.0-0.87); Eosinophils % 2.1 % (0.00-10.9); Hematocrit 25.2 VOL% (42.0-52.0); Hemoglobin 7.3 GM/DL (14.0-18.0); Immature Granulocytes % 0.3 %; Immature Granulocytes Absolute 0.03 #; Lymphocytes # 0.7 10*3/uL (1.4-4.0); Lymphocytes % 7.3 % (21.2-54.2); Mean Corpuscular Hemoglobin 21 PG (27-34); Mean Platelet Volume 10.7 FL (9.6-12.0); Monocytes # 0.9 10*3/uL (0.11-0.8); Monocytes % 9.3 % (1.7-12.7); NRBC # 0.02 10*3/uL; Neutrophils # 7.4 10*3/uL (1.4-7.4); Neutrophils % 80.6 % (38.7-73.9); Platelet Count 119 T/CUMM (130-400); Red Blood Count 3.45 MC/CUMM (3.8-5.5); Red Cell Distribution Width 21.4 % (9.3-17.3); White Blood Count 9.2 T/CUMM (4-12)
[2016-10-11 06:11] LABS: Calcium 7.8 MG/DL (8.5-10.1); Magnesium 2.1 MG/DL (1.8-2.4); Osmolality,Calculated 271.4 MOS/KG (273-304); Potassium 5.3 MMOL/L (3.5-5.1)
--- NOTE | 2016-10-11 07:14 | EKG Report ---
Stationary ECG Study [facility] Test Date: 10/11/2016 7:12:25 AM Pat Name: SABI FAULKNER Department: Room: 322 Gender: M Claims Counsel: : 1950 Requested by: Frankie Castaneda Order Number: [id number] Reading MD: HUEY PEÑA Intervals [place] Rate: 87 P: 63 [place]: 157 QRS: 35 QRSD: 88 T: 110 QT: 359 QTc: 403 Interpretive Statements SINUS RHYTHM WITH FREQUENT VENTRICULAR PREMATURE COMPLEXES T WAVE ABNORMALITY, POSSIBLE LATERAL ISCHEMIA Electronically Signed On 10-11-16 07:38:16 CDT by HUEY PEÑA [email or web address]
--- NOTE | 2016-10-11 07:33 | Physician Query Form ---
CLICK EDIT DOCUMENT TO SELECT QUERY ANSWER --> OK --> SIGN Tona Franklin RN, CCDS Certified Clinical [employer] Inspector W) [phone] (f) [phone] [email or web address] PROVIDERS: Make your selection(s) from the choices in EACH section by typing an "x" and enter comments in the comment section. Please use your independent medical judgment in providing your response. This request does not imply that any particular answer is desired or expected. CLINICAL INDICATORS: (Providers should not edit this section) The medical record indicates that the patient was admitted with a fx of the hip , on the 8th: "became less responsive with dropping 02 sates and received increasing oxygen followed by Narcan from which he awakened", and "however arterial blood gases revealed significant CO2 retention with respiratory acidosis". ABG's 6.969----PCO2 146.6----p02 79.3 ACUITY: ( x) Acute ( ) Acute on Chronic ( ) Chronic ( ) Clinically unable to determine NATURE: ( ) Delirium due to general medical condition ( ) Dementia ( ) Encephalopathy ( ) Acute hypoxic Encephalopathy ( ) Unconscious ( x) Transient level of awareness ( ) Comatose ( ) Locked-in State ( ) Persistent Vegetative State ( ) Other, please specify: ( ) Clinically unable to determine Please indicate the underlying cause of the altered mental status (CHECK ALL THAT APPLY): ( ) Baseline dementia ( ) Alzheimer's disease ( ) Parkinson's disease ( ) Lewy body dementia ( ) Acute stroke ( ) Late effect of stroke ( ) Reactive (from emotional stress, psychological trauma) ( x) Due to narcotics/other drugs ( ) Post procedural delirium ( ) Transient ischemic attack ( ) Generalized cerebral edema ( ) Normal pressure hydrocephalus ( ) Psychiatric illness ( ) Other, please specify: ( ) Clinically unable to determine Please indicate if there is an infection, sepsis, dehydration or specific organ failure that is causing the dementia. Be specific with clarifying the relationship between that process and the mental status change. COMMENTS: PLEASE ALSO DOCUMENT RESPONSE IN PROGRESS NOTES AND/OR DISCHARGE SUMMARY Use of terms such as suspected, likely, or probable (associated with a specific diagnosis that is being evaluated, monitored, or treated as if it exists) are acceptable and can be restated in the discharge summary if not ruled out. MTDD
[2016-10-11] MEDS: PANTOPRAZOLE 40 MG TABLET PO SCH (08:18)
[2016-10-11] MEDS: ASPIRIN CHEW 81 MG TABLET PO SCH (08:18)
[2016-10-11] MEDS: CARVEDILOL 3.125 MG TABLET PO SCH (08:18)
[2016-10-11] MEDS ORDERED: SODIUM CHLORIDE 0.9% 250 ML IV PRN (08:20)
--- NOTE | 2016-10-11 08:21 | Orthopedic Progress Note ---
Orthopedics - Subjective Interval history: Comfortable awake alert hemoglobin 7.5 discussed anemia I would recommend 2 units PRBC today discharge planning in progress discussed with Dr. Lizarraga will be partial weightbearing Exam - Constitutional Vitals: Period Temp Pulse Resp BP Sys/Gates Pulse Ox Last 24 Hr 96.9 F-97.9 F 44-95 16-24 111-161/36-96 88-99 Results - Labs CBC & BMP: 10/11/16 04:25 10/11/16 04:25 Quality Measures - VTE Contraindication to Pharmacological VTE Prophylaxis: Thrombocytopenia
[2016-10-11] MEDS: SODIUM CHLORIDE 0.9% 1,000 ML IV SCH (08:30)
[2016-10-11] MEDS ORDERED: FUROSEMIDE 20 MG/2 ML VIAL IV ONE (08:56)
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
[2016-10-11] MEDS: ALBUTEROL/IPRATROPIUM 3 ML NEB RESP TX SCH ×2 (13:03→20:56)
[2016-10-11] MEDS: NICOTINE 21 MG/24 HR PATCH TRANSDERM SCH (13:35)
[2016-10-11] MEDS: methylPREDNISolone SOD SUC 40 MG/1 ML VIAL IV SCH ×2 (13:35→20:51)
--- NOTE | 2016-10-11 15:25 | Hospitalist Progress Note ---
Assessment and Plan (1) COPD (chronic obstructive pulmonary disease) Status: Chronic Assessment and plan: Appreciate input from pulmonary. Continue with duo nebs. Continue with oxygen therapy. Current Visit: Yes Qualifiers: COPD type: chronic bronchitis (2) Alcoholic cirrhosis of liver Status: Chronic Current Visit: Yes (3) Obstructive sleep apnea Status: Chronic Current Visit: Yes (4) Anemia Status: Chronic Assessment and plan: 2 units packed red blood cells. CBC in a.m. Current Visit: Yes Qualifiers: Anemia type: unspecified type Qualified Code(s): D64.9 - Anemia, unspecified (5) Hip fracture Status: Acute Assessment and plan: Status post hip fracture repair. Current Visit: Yes Qualifiers: Encounter type: initial encounter Fracture type: closed Laterality: right Qualified Code(s): S72.001A - Fracture of unspecified part of neck of right femur, initial encounter for closed fracture Hospitalist: Subjective Interval history: Patient sitting up in bed resting comfortably. Facemask oxygen in place. He is also status post 2 units packed red blood cells and continues to do acceptable. Continues to have bilateral wheezing. Pulmonary is following patient. Exam - Constitutional Vitals: Period Temp Pulse Resp BP Sys/Gates Pulse Ox Last 24 Hr 96.9 F-98.0 F 48-87 16-20 95-180/52-78 89-100 General appearance: over weight - Head Head exam: Present: normal inspection - Eye Eye exam: Present: EOMI - Respiratory Respiratory exam: Present: wheezes (Bilaterally) - Cardiovascular Cardiovascular exam: Present: regular rate and rhythm - GI/Abdominal GI/Abdominal exam: Present: normal bowel sounds - Extremities Exam Extremities exam: Present: normal inspection - Neurological Exam Neurological exam: Present: alert, oriented X3 - Psychiatric Psychiatric exam: Present: normal affect - Skin Skin exam: Present: normal color Results - Labs CBC & BMP: 10/11/16 04:25 10/11/16 04:25 Quality Measures - VTE Contraindication to Pharmacological VTE Prophylaxis: Thrombocytopenia
[2016-10-11] MEDS: CARVEDILOL 6.25 MG TABLET PO SCH (20:51)
[2016-10-12] MEDS: SODIUM CHLORIDE 0.9% 1,000 ML IV SCH ×3 (00:01→10:29)
[2016-10-12] MEDS: ALBUTEROL/IPRATROPIUM 3 ML NEB RESP TX SCH ×4 (03:01→19:56)
[2016-10-12] MEDS: oxyCODONE/ACETAMINOPHEN 5-325 MG TABLET PO PRN ×5 (03:16→23:33)
[2016-10-12 06:08] LABS: Hematocrit 26.9 VOL% (42.0-52.0); Hemoglobin 8.1 GM/DL (14.0-18.0); Immature Granulocytes % 0.5 %; Immature Granulocytes Absolute 0.02 #; Lymphocytes # 0.3 10*3/uL (1.4-4.0); Lymphocytes % 8.9 % (21.2-54.2); Mean Corpuscular HGB Conc 30.1 GM/DL (32-36); Mean Corpuscular Hemoglobin 23 PG (27-34); Mean Corpuscular Volume 75.6 FL (87-102); Mean Platelet Volume 10.5 FL (9.6-12.0); Monocytes # 0.2 10*3/uL (0.11-0.8); Monocytes % 5.5 % (1.7-12.7); Neutrophils # 3.3 10*3/uL (1.4-7.4); Neutrophils % 85.1 % (38.7-73.9); Platelet Count 87 T/CUMM (130-400); Red Blood Count 3.56 MC/CUMM (3.8-5.5); Red Cell Distribution Width 21.7 % (9.3-17.3); White Blood Count 3.8 T/CUMM (4-12)
--- NOTE | 2016-10-12 07:39 | Hospitalist Progress Note ---
Assessment and Plan (1) COPD (chronic obstructive pulmonary disease) Status: Chronic Assessment and plan: Active perioperative bronchospasm Current Visit: Yes Qualifiers: COPD type: chronic bronchitis (2) AVM (arteriovenous malformation) of colon Status: Chronic Assessment and plan: Recurrent transfusion requirements. Current Visit: Yes (3) Alcoholic cirrhosis of liver Status: Chronic Assessment and plan: Cytopenias without ascites Current Visit: Yes (4) Hip fracture Status: Acute Assessment and plan: Surgical repair 10 October. Current Visit: Yes Qualifiers: Encounter type: initial encounter Fracture type: closed Laterality: right Qualified Code(s): S72.001A - Fracture of unspecified part of neck of right femur, initial encounter for closed fracture Hospitalist: Subjective Interval history: 66-year-old male with reactive airway disease and hepatic cirrhosis who presented following a non-syncopal fall with a right hip fracture. Due to coexisting medical conditions operative intervention was delayed until 10 October during which interval the patient had an echocardiogram that showed only cardio sclerotic changes. His chronic anemia and thrombocytopenia were addressed with red blood cell transfusions. He was seen by cardiology and pulmonary toilet was initiated. He tolerated the surgical procedure and continues to have low-grade bronchospasm. His rhythm strips show persistent ventricular bigeminy with uniform ventricular premature depolarizations. He states he feels well this morning. Exam - Constitutional Vitals: Period Temp Pulse Resp BP Sys/Gates Pulse Ox Last 24 Hr 96.6 F-98.0 F 62-87 17-20 95-188/54-82 92-100 General appearance: over weight - Respiratory Respiratory exam: Present: wheezes. Absent: rales, rhonchi - Cardiovascular Cardiovascular exam: Present: irregular rhythm (Bigeminal ventricular premature depolarizations per) - GI/Abdominal GI/Abdominal exam: Present: normal bowel sounds. Absent: ascites, tenderness - Extremities Exam Extremities exam: Absent: edema - Neurological Exam Neurological exam: Present: alert, oriented X3 Results - Labs CBC & BMP: 10/12/16 05:24 10/11/16 04:25 Quality Measures - VTE Contraindication to Pharmacological VTE Prophylaxis: Thrombocytopenia
[2016-10-12] MEDS: PANTOPRAZOLE 40 MG TABLET PO SCH (08:09)
[2016-10-12] MEDS: ASPIRIN CHEW 81 MG TABLET PO SCH (08:09)
[2016-10-12] MEDS: CARVEDILOL 6.25 MG TABLET PO SCH ×2 (08:09→21:16)
[2016-10-12] MEDS: NICOTINE 21 MG/24 HR PATCH TRANSDERM SCH (08:12)
[2016-10-12] MEDS: methylPREDNISolone SOD SUC 40 MG/1 ML VIAL IV SCH ×2 (08:34→21:47)
--- NOTE | 2016-10-12 09:30 | Physician Query Form ---
CLICK EDIT DOCUMENT TO SELECT QUERY ANSWER --> OK --> SIGN Tona Franklin RN, CCDS Certified Clinical Sixth Grade Teacher W) [phone] (f) [phone] [email or web address]: Make your selection(s) from the choices in EACH section by typing an "x" and enter comments in the comment section. Please use your independent medical judgment in providing your response. This request does not imply that any particular answer is desired or expected. CLINICAL INDICATORS: (Providers should not edit this section) The medical record indicates that the patient was admitted with a fx of the hip , HH of 7.4/26.2 & the patient was given 6 units of blood. Based on the above, could you clarify which of the following conditions you are evaluating, treating, and/or monitoring? ( ) Blood loss anemia ( ) acute ( ) chronic ( ) acute on chronic ( x) Acute blood loss anemia on baseline chronic anemia ( ) Acute blood loss anemia as a complication of a procedure ( ) Iron deficiency anemia not associated with blood loss ( ) Dilutional anemia due to IV fluids ( ) Anemia due to chemotherapy ( ) Anemia due to neoplastic disease ( ) Anemia due to chronic kidney disease ( ) Pernicious anemia ( ) Aplastic anemia ( ) Hemolytic anemia ( ) immune ( ) non-immune - please specify cause: ( ) Anemia due to other condition, please specify: ( ) Clinically unable to determine COMMENTS: PLEASE ALSO DOCUMENT RESPONSE IN PROGRESS NOTES AND/OR DISCHARGE SUMMARY Use of terms such as suspected, likely, or probable (associated with a specific diagnosis that is being evaluated, monitored, or treated as if it exists) are acceptable and can be restated in the discharge summary if not ruled out. MTDD
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
--- NOTE | 2016-10-12 14:40 | Orthopedic Progress Note ---
Orthopedics - Subjective Interval history: Hemoglobin still in the mid 8 range tolerating PT slowly difficult due to his size to comply with limited weightbearing on the right discussed with PT. Also patient does not want to go to swing bed I encouraged him to reconsider. I think it unlikely he will be able to manage at home. Exam - Constitutional Vitals: Period Temp Pulse Resp BP Sys/Gates Pulse Ox Last 24 Hr 96.6 F-98.0 F 62-87 17-20 125-188/44-82 94-99 Results - Labs CBC & BMP: 10/12/16 05:24 10/11/16 04:25 Quality Measures - VTE Contraindication to Pharmacological VTE Prophylaxis: Thrombocytopenia
--- NOTE | 2016-10-12 14:41 | Pulmonology Progress Note ---
Pulmonary - PN: Subj Interval history: The patient is a 66-year-old white man that had a right hip fracture. He had this repaired over the weekend. He is doing fairly well at the present time. He is an overweight smoker with diabetes and hypertension likely has some COPD. He says his hip is doing a little better and he did do some physical therapy yesterday. He feels like overall he is better and his breathing is a little better today. Exam (Progress Note) - Constitutional Vitals: Period Temp Pulse Resp BP Sys/Gates Pulse Ox Last 24 Hr 96.6 F-98.0 F 62-87 17-20 125-188/44-82 94-99 Exam: General appearance: no acute distress, morbidly obese, he is sitting up and alert and looks comfortable. - Head Head exam: Present: normal inspection, normocephalic - Eye Eye exam: Present: EOMI. Absent: scleral icterus Pupils: Present: JAVED - ENT ENT exam: Present: other (Has class IV Mallampati) - Neck Neck exam: Present: normal inspection. Absent: lymphadenopathy, thyromegaly - Respiratory Respiratory exam: Present: His lungs have distant breath sounds but is moving air reasonably well without any increased wheezing now. - Cardiovascular Cardiovascular exam: Present: irregular rhythm. Absent: gallop, systolic murmur - GI/Abdominal GI/Abdominal exam: Present: normal bowel sounds, soft. Absent: organomegaly, tenderness - Extremities Exam Extremities exam: Present: other (Right hip is wrapped). Absent: calf tenderness, edema - Neurological Exam Neurological exam: Present: alert, oriented X3, CN II-XII intact. Absent: motor sensory deficit - Psychiatric Psychiatric exam: Present: normal affect - Skin Skin exam: Present: warm, dry Results - Labs CBC & BMP: 10/12/16 05:24 10/11/16 04:25 Assessment and Plan (1) COPD (chronic obstructive pulmonary disease) Status: Chronic Assessment and plan: Patient has been a lifelong smoker and certainly has at least a component of COPD. He does have some CO2 retention. Will continue bronchodilators and a few doses of steroids. He does seem to be a little better today. Current Visit: Yes Qualifiers: COPD type: chronic bronchitis (2) Hip fracture Status: Acute Assessment and plan: Patient fell and had a hip fracture and had his right leg repaired. He is doing more activity and seems to have less pain. Current Visit: Yes Qualifiers: Encounter type: initial encounter Fracture type: closed Laterality: right Qualified Code(s): S72.001A - Fracture of unspecified part of neck of right femur, initial encounter for closed fracture (3) Ventricular bigeminy Status: Acute Assessment and plan: The patient's cardiac status is been evaluated by cardiology. Current Visit: Yes (4) Morbid obesity Status: Chronic Assessment and plan: The patient is certainly deconditioned. Current Visit: Yes (5) Obstructive sleep apnea Status: Chronic Assessment and plan: The patient likely has at least a component of sleep apnea. In the future he may need to be studied. He says he is not wearing a BiPAP mask now. Current Visit: Yes (6) Tobacco abuse Status: Chronic Assessment and plan: We will try nicotine patch and see if we can get him to cut back on cigarettes. Current Visit: Yes
[2016-10-13] MEDS: ALBUTEROL/IPRATROPIUM 3 ML NEB RESP TX SCH ×4 (00:26→19:15)
[2016-10-13] MEDS: oxyCODONE/ACETAMINOPHEN 5-325 MG TABLET PO PRN ×2 (04:25→16:18)
[2016-10-13 06:12] LABS: Hematocrit 29.1 VOL% (42.0-52.0); Hemoglobin 8.5 GM/DL (14.0-18.0); Immature Granulocytes % 0.9 %; Immature Granulocytes Absolute 0.04 #; Lymphocytes # 0.4 10*3/uL (1.4-4.0); Lymphocytes % 8.5 % (21.2-54.2); Mean Corpuscular HGB Conc 29.2 GM/DL (32-36); Mean Corpuscular Hemoglobin 23 PG (27-34); Mean Corpuscular Volume 77.6 FL (87-102); Mean Platelet Volume 10.3 FL (9.6-12.0); Monocytes # 0.2 10*3/uL (0.11-0.8); Monocytes % 4.8 % (1.7-12.7); Neutrophils # 3.9 10*3/uL (1.4-7.4); Neutrophils % 85.8 % (38.7-73.9); Platelet Count 98 T/CUMM (130-400); Red Blood Count 3.75 MC/CUMM (3.8-5.5); Red Cell Distribution Width 22.6 % (9.3-17.3); White Blood Count 4.6 T/CUMM (4-12)
[2016-10-13 06:45] LABS: Eosinophils 1 % (0-10); Lymphocytes 8 % (20-55); Promyelocytes 1 %; Segmented Neutrophils 87 % (50-85); Total Cells Counted 100
[2016-10-13 06:46] LABS: Platelet Estimate Decreased; Polychromasia Slight; Target Cells Slight
--- NOTE | 2016-10-13 08:14 | Hospitalist Progress Note ---
Assessment and Plan (1) COPD (chronic obstructive pulmonary disease) Status: Chronic Assessment and plan: Active perioperative bronchospasm. Obstructive sleep apnea with noncompliance with CPAP unit Current Visit: Yes Qualifiers: COPD type: chronic bronchitis (2) AVM (arteriovenous malformation) of colon Status: Chronic Assessment and plan: Recurrent transfusion requirements. Current Visit: Yes (3) Alcoholic cirrhosis of liver Status: Chronic Assessment and plan: Cytopenias without ascites Current Visit: Yes (4) Hip fracture Status: Acute Assessment and plan: Surgical repair 10 October. Current Visit: Yes Qualifiers: Encounter type: initial encounter Fracture type: closed Laterality: right Qualified Code(s): S72.001A - Fracture of unspecified part of neck of right femur, initial encounter for closed fracture Hospitalist: Subjective Interval history: 66-year-old male with hepatic cirrhosis reactive airway disease and obstructive sleep apnea had presented with a non-syncopal fall with right hip fracture. Due to his comorbidities surgical repair was delayed until 10 October to allow an adequate evaluation. He has consistent uniform ventricular bigeminy with an echocardiogram showing only cardiosclerotic changes with preserved left ventricular systolic performance. He is chronic anemia was addressed with transfusion preoperatively. He continues unable to tolerate the chemical support devices for his CPAP. He is slightly more confused this morning that he had been on his previous exam vital signs are otherwise stable and he has no specific complaint. His bronchospasm appears to be gradually improving. Exam - Constitutional Vitals: Period Temp Pulse Resp BP Sys/Gates Pulse Ox Last 24 Hr 96.9 F-98.0 F 47-80 18-20 115-135/44-93 91-98 General appearance: over weight - Respiratory Respiratory exam: Present: wheezes (Minimal end expiratory wheezes). Absent: rales, rhonchi - Cardiovascular Cardiovascular exam: Present: regular rate and rhythm (Persistent ventricular bigeminy.) - GI/Abdominal GI/Abdominal exam: Present: normal bowel sounds. Absent: tenderness - Extremities Exam Extremities exam: Absent: edema - Neurological Exam Neurological exam: Present: alert Results - Labs CBC & BMP: 10/13/16 05:47 10/11/16 04:25 Quality Measures - VTE Contraindication to Pharmacological VTE Prophylaxis: Thrombocytopenia
[2016-10-13] MEDS: methylPREDNISolone SOD SUC 40 MG/1 ML VIAL IV SCH ×2 (08:36→20:54)
[2016-10-13] MEDS: CARVEDILOL 6.25 MG TABLET PO SCH (08:37)
[2016-10-13] MEDS: NICOTINE 21 MG/24 HR PATCH TRANSDERM SCH (08:37)
[2016-10-13] MEDS: ASPIRIN CHEW 81 MG TABLET PO SCH (08:37)
[2016-10-13] MEDS: PANTOPRAZOLE 40 MG TABLET PO SCH (08:37)
--- NOTE | 2016-10-13 08:53 | Orthopedic Progress Note ---
Orthopedics - Subjective Interval history: Hemoglobin up to 8.5 today still needing a lot of assistance with mobility of it recommended he consider rehab swing bed placement. Exam - Constitutional Vitals: Period Temp Pulse Resp BP Sys/Gates Pulse Ox Last 24 Hr 96.9 F-98.0 F 47-80 18-20 115-135/44-93 91-98 Results - Labs CBC & BMP: 10/13/16 05:47 10/11/16 04:25 Quality Measures - VTE Contraindication to Pharmacological VTE Prophylaxis: Thrombocytopenia
--- NOTE | 2016-10-13 15:04 | Pulmonology Progress Note ---
Pulmonary - PN: Subj Interval history: The patient is a 66-year-old white man that had a right hip fracture. He had this repaired over the weekend. He is doing fairly well at the present time. He is an overweight smoker with diabetes and hypertension likely has some COPD. He says he had a fairly good night last night and is feeling better. He is doing a little bit of physical therapy. His breathing is comfortable on low- flow oxygen. He certainly needs to go to a swing bed. Exam (Progress Note) - Constitutional Vitals: Period Temp Pulse Resp BP Sys/Gates Pulse Ox Last 24 Hr 96.9 F-98.2 F 39-87 16-20 115-141/52-93 91-98 Exam: General appearance: no acute distress, morbidly obese, he is sitting up and alert and looks comfortable. He is not having any increased distress. - Head Head exam: Present: normal inspection, normocephalic - Eye Eye exam: Present: EOMI. Absent: scleral icterus Pupils: Present: JAVED - ENT ENT exam: Present: other (Has class IV Mallampati) - Neck Neck exam: Present: normal inspection. Absent: lymphadenopathy, thyromegaly - Respiratory Respiratory exam: Present: His lungs have distant breath sounds and he has fair air movement with no wheezing. - Cardiovascular Cardiovascular exam: Present: irregular rhythm. Absent: gallop, systolic murmur - GI/Abdominal GI/Abdominal exam: Present: normal bowel sounds, soft. Obese absent: organomegaly, tenderness - Extremities Exam Extremities exam: Present: other (Right hip is wrapped). Absent: calf tenderness, edema - Neurological Exam Neurological exam: Present: alert, oriented X3, CN II-XII intact. Absent: motor sensory deficit - Psychiatric Psychiatric exam: Present: normal affect - Skin Skin exam: Present: warm, dry Results - Labs CBC & BMP: 10/13/16 05:47 10/11/16 04:25 Assessment and Plan (1) COPD (chronic obstructive pulmonary disease) Status: Chronic Assessment and plan: Patient has been a lifelong smoker and certainly has at least a component of COPD. He does have some CO2 retention. Will continue bronchodilators and a few doses of steroids. His respiratory status is reasonably stable at present. Current Visit: Yes Qualifiers: COPD type: chronic bronchitis (2) Hip fracture Status: Acute Assessment and plan: Patient fell and had a hip fracture and had his right leg repaired. He is doing more activity and seems to have less pain. He still is quite limited and certainly will need further support. He cannot go home by himself Current Visit: Yes Qualifiers: Encounter type: initial encounter Fracture type: closed Laterality: right Qualified Code(s): S72.001A - Fracture of unspecified part of neck of right femur, initial encounter for closed fracture (3) Ventricular bigeminy Status: Acute Assessment and plan: The patient's cardiac status is been evaluated by cardiology. Current Visit: Yes (4) Morbid obesity Status: Chronic Assessment and plan: The patient is certainly deconditioned. Current Visit: Yes (5) Obstructive sleep apnea Status: Chronic Assessment and plan: The patient likely has at least a component of sleep apnea. In the future he may need to be studied. He says he is not wearing a BiPAP mask now. Current Visit: Yes (6) Tobacco abuse Status: Chronic Assessment and plan: We will try nicotine patch and see if we can get him to cut back on cigarettes. Current Visit: Yes
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
[2016-10-13] MEDS: METOPROLOL TARTRATE 50 MG TABLET PO SCH (20:54)
[2016-10-14] MEDS: ALBUTEROL/IPRATROPIUM 3 ML NEB RESP TX SCH ×4 (00:46→19:30)
[2016-10-14] MEDS: oxyCODONE/ACETAMINOPHEN 5-325 MG TABLET PO PRN ×4 (04:00→20:57)
[2016-10-14 05:22] LABS: Hematocrit 30.2 VOL% (42.0-52.0); Hemoglobin 8.9 GM/DL (14.0-18.0); Immature Granulocytes % 0.8 %; Immature Granulocytes Absolute 0.04 #; Lymphocytes # 0.5 10*3/uL (1.4-4.0); Lymphocytes % 9.6 % (21.2-54.2); Mean Corpuscular HGB Conc 29.5 GM/DL (32-36); Mean Corpuscular Hemoglobin 23 PG (27-34); Mean Corpuscular Volume 77.8 FL (87-102); Mean Platelet Volume 10.2 FL (9.6-12.0); Monocytes # 0.3 10*3/uL (0.11-0.8); Monocytes % 5.6 % (1.7-12.7); NRBC # 0.02 10*3/uL; Neutrophils # 4.2 10*3/uL (1.4-7.4); Platelet Count 106 T/CUMM (130-400); Red Blood Count 3.88 MC/CUMM (3.8-5.5); Red Cell Distribution Width 23.2 % (9.3-17.3)
[2016-10-14 05:40] LABS: Calcium 8.9 MG/DL (8.5-10.1); Osmolality,Calculated 280.1 MOS/KG (273-304); Potassium 5.6 MMOL/L (3.5-5.1)
[2016-10-14 06:16] LABS: Hypochromasia 2+; Polychromasia Slight; Target Cells Slight
[2016-10-14 06:17] LABS: Basophilic Stippling Slight
--- NOTE | 2016-10-14 08:17 | Hospitalist Progress Note ---
Assessment and Plan (1) COPD (chronic obstructive pulmonary disease) Status: Chronic Assessment and plan: Active perioperative bronchospasm. Obstructive sleep apnea with noncompliance with CPAP unit Current Visit: Yes Qualifiers: COPD type: chronic bronchitis (2) AVM (arteriovenous malformation) of colon Status: Chronic Assessment and plan: Recurrent transfusion requirements. Current Visit: Yes (3) Alcoholic cirrhosis of liver Status: Chronic Assessment and plan: Cytopenias without ascites Current Visit: Yes (4) Hip fracture Status: Acute Assessment and plan: Surgical repair 10 October. Current Visit: Yes Qualifiers: Encounter type: initial encounter Fracture type: closed Laterality: right Qualified Code(s): S72.001A - Fracture of unspecified part of neck of right femur, initial encounter for closed fracture Hospitalist: Subjective Interval history: 66-year-old male sustaining a non-syncopal fall with right hip fracture. Patient has a history of hepatic cirrhosis with pancytopenia and reactive airway disease superimposed upon chronic obstructive sleep apnea, with a delaying surgery until 10 October to allow cardiac and pulmonary evaluations prior to surgery. Patient has had a consistent uniform ventricular bigeminy since admission which has continued. His echocardiogram showed only cardiosclerotic changes with preserved LV systolic performance. He has been intolerant of CPAP. His level of orientation is much better this morning and his vital signs overnight have been stable. He is making slow progress with physical therapy. Exam - Constitutional Vitals: Period Temp Pulse Resp BP Sys/Gates Pulse Ox Last 24 Hr 96.6 F-98.2 F 40-87 16-20 112-141/60-95 90-99 General appearance: over weight - Respiratory Respiratory exam: Present: wheezes (Continued improvement over the last 48 hours ). Absent: rales, rhonchi - Cardiovascular Cardiovascular exam: Present: irregular rhythm (Persistent ventricular bigeminy ) - GI/Abdominal GI/Abdominal exam: Present: normal bowel sounds. Absent: tenderness - Extremities Exam Extremities exam: Absent: edema - Neurological Exam Neurological exam: Present: alert, oriented X3 Results - Labs CBC & BMP: 10/14/16 04:08 10/14/16 04:08 Quality Measures - VTE Contraindication to Pharmacological VTE Prophylaxis: Thrombocytopenia
[2016-10-14] MEDS: PANTOPRAZOLE 40 MG TABLET PO SCH (08:42)
[2016-10-14] MEDS: ASPIRIN CHEW 81 MG TABLET PO SCH (08:42)
[2016-10-14] MEDS: NICOTINE 21 MG/24 HR PATCH TRANSDERM SCH ×2 (08:42→08:46)
[2016-10-14] MEDS: METOPROLOL TARTRATE 50 MG TABLET PO SCH ×2 (08:42→20:57)
[2016-10-14] MEDS: methylPREDNISolone SOD SUC 40 MG/1 ML VIAL IV SCH (08:43)
--- NOTE | 2016-10-14 09:04 | Pulmonology Progress Note ---
Pulmonary - PN: Subj Interval history: The patient is a 66-year-old white man that had a right hip fracture. He had this repaired over the weekend. He is doing fairly well at the present time. He is an overweight smoker with diabetes and hypertension likely has some COPD. He said he had a fairly good night although he has trouble getting comfortable in his bed. He said his hip pain is better. He denies increased shortness of breath. He seems to be doing fairly well with respiratory therapy. He will continue with physical therapy. His potassium was up today at 5.6. Exam (Progress Note) - Constitutional Vitals: Period Temp Pulse Resp BP Sys/Gates Pulse Ox Last 24 Hr 96.6 F-98.2 F 40-87 16-20 112-141/60-95 90-99 Exam: General appearance: no acute distress, morbidly obese, he is sitting up and alert and looks comfortable. He looks like he is doing a little better. - Head Head exam: Present: normal inspection, normocephalic - Eye Eye exam: Present: EOMI. Absent: scleral icterus Pupils: Present: JAVED - ENT ENT exam: Present: other (Has class IV Mallampati) - Neck Neck exam: Present: normal inspection. Absent: lymphadenopathy, thyromegaly - Respiratory Respiratory exam: Present: His lungs have distant breath sounds and he has fair air movement with no wheezing. He is still breathing comfortably. - Cardiovascular Cardiovascular exam: Present: irregular rhythm. Absent: gallop, systolic murmur - GI/Abdominal GI/Abdominal exam: Present: normal bowel sounds, soft. Obese absent: organomegaly, tenderness - Extremities Exam Extremities exam: Present: other (Right hip is wrapped). Absent: calf tenderness, edema - Neurological Exam Neurological exam: Present: alert, oriented X3, CN II-XII intact. Absent: motor sensory deficit - Psychiatric Psychiatric exam: Present: normal affect - Skin Skin exam: Present: warm, dry Results - Labs CBC & BMP: 10/14/16 04:08 10/14/16 04:08 Assessment and Plan (1) COPD (chronic obstructive pulmonary disease) Status: Chronic Assessment and plan: Patient has been a lifelong smoker and certainly has at least a component of COPD. He does have some CO2 retention. Will continue bronchodilators and a few doses of steroids. His respiratory status is reasonably stable at present. So far he is doing fairly well. Current Visit: Yes (2) Hip fracture Status: Acute Assessment and plan: Patient fell and had a hip fracture and had his right leg repaired. He is doing more activity and seems to have less pain. He still is quite limited and certainly will need further support. He will continue with physical therapy. Current Visit: Yes Qualifiers: Qualified Code(s): S72.001A - Fracture of unspecified part of neck of right femur, initial encounter for closed fracture (3) Ventricular bigeminy Status: Acute Assessment and plan: The patient's cardiac status is been evaluated by cardiology. His cardiac status has been reasonably stable. Current Visit: Yes (4) Morbid obesity Status: Chronic Assessment and plan: The patient is certainly deconditioned. Current Visit: Yes (5) Obstructive sleep apnea Status: Chronic Assessment and plan: The patient likely has at least a component of sleep apnea. In the future he may need to be studied. He says he is not wearing a BiPAP mask now. Current Visit: Yes (6) Tobacco abuse Status: Chronic Assessment and plan: We will try nicotine patch and see if we can get him to cut back on cigarettes. Current Visit: Yes
[2016-10-14] MEDS: predniSONE 20 MG TABLET PO SCH (09:35)
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
--- NOTE | 2016-10-14 13:25 | Orthopedic Progress Note ---
Orthopedics - Subjective Interval history: PT is going slowly patient still does not want to go to swing bed or rehab even though we have encouraged him to consider continue mobilizing touchdown to gentle partial weightbearing discharge and instructions will be given once determine where he is going to go. Exam - Constitutional Vitals: Period Temp Pulse Resp BP Sys/Gates Pulse Ox Last 24 Hr 96.1 F-97.9 F 40-78 16-20 112-140/59-95 90-99 Results - Labs CBC & BMP: 10/14/16 04:08 10/14/16 04:08 Quality Measures - VTE Contraindication to Pharmacological VTE Prophylaxis: Thrombocytopenia
[2016-10-15] MEDS: ALBUTEROL/IPRATROPIUM 3 ML NEB RESP TX SCH ×3 (00:31→13:29)
[2016-10-15] MEDS: oxyCODONE/ACETAMINOPHEN 5-325 MG TABLET PO PRN ×2 (04:05→13:23)
--- NOTE | 2016-10-15 08:33 | Pulmonology Progress Note ---
Pulmonary - PN: Subj Interval history: The patient is a 66-year-old white man that had a right hip fracture. He had this repaired over the weekend. He is doing fairly well at the present time. He is an overweight smoker with diabetes and hypertension likely has some COPD. He continues to do a little better each day. He is doing some activity with physical therapy. He says his breathing is doing okay. Overall he has been reasonably stable and is going to rehab. Exam (Progress Note) - Constitutional Vitals: Period Temp Pulse Resp BP Sys/Gates Pulse Ox Last 24 Hr 96.1 F-98.0 F 37-86 18-20 115-154/58-99 90-99 Exam: General appearance: no acute distress, morbidly obese, he is sitting up and alert and looks comfortable. He looks like he is doing a little better. He does not have any respiratory distress. - Head Head exam: Present: normal inspection, normocephalic - Eye Eye exam: Present: EOMI. Absent: scleral icterus Pupils: Present: JAVED - ENT ENT exam: Present: other (Has class IV Mallampati) - Neck Neck exam: Present: normal inspection. Absent: lymphadenopathy, thyromegaly - Respiratory Respiratory exam: Present: His lungs have distant breath sounds and he has fair air movement with no wheezing. He is still breathing comfortably. - Cardiovascular Cardiovascular exam: Present: irregular rhythm. Absent: gallop, systolic murmur - GI/Abdominal GI/Abdominal exam: Present: normal bowel sounds, soft. Obese absent: organomegaly, tenderness - Extremities Exam Extremities exam: Present: other (Right hip is wrapped). Is a little swollen but no signs of phlebitis. - Neurological Exam Neurological exam: Present: alert, oriented X3, CN II-XII intact. Absent: motor sensory deficit - Psychiatric Psychiatric exam: Present: normal affect - Skin Skin exam: Present: warm, dry Results - Labs CBC & BMP: 10/14/16 04:08 10/14/16 04:08 Assessment and Plan (1) COPD (chronic obstructive pulmonary disease) Status: Chronic Assessment and plan: Patient has been a lifelong smoker and certainly has at least a component of COPD. He does have some CO2 retention. Will continue bronchodilators and a few doses of steroids. His respiratory status is reasonably stable at present. He continues to do well with bronchodilator therapy. Current Visit: Yes Qualifiers: COPD type: chronic bronchitis (2) Hip fracture Status: Acute Assessment and plan: Patient fell and had a hip fracture and had his right leg repaired. He is doing more activity and seems to have less pain. He still is quite limited and certainly will need further support. He will continue with physical therapy. He probably will need to go to rehab. Current Visit: Yes Qualifiers: Encounter type: initial encounter Fracture type: closed Laterality: right Qualified Code(s): S72.001A - Fracture of unspecified part of neck of right femur, initial encounter for closed fracture (3) Ventricular bigeminy Status: Acute Assessment and plan: The patient's cardiac status is been evaluated by cardiology. His cardiac status has been reasonably stable. Current Visit: Yes (4) Morbid obesity Status: Chronic Assessment and plan: The patient is certainly deconditioned. Current Visit: Yes (5) Obstructive sleep apnea Status: Chronic Assessment and plan: The patient likely has at least a component of sleep apnea. In the future he may need to be studied. He says he is not wearing a BiPAP mask now. Current Visit: Yes (6) Tobacco abuse Status: Chronic Assessment and plan: We will try nicotine patch and see if we can get him to cut back on cigarettes. Current Visit: Yes Specialty Discharge - Follow Up or Referrals Follow up with: Marcos Zuniga Jr., MD [Physician] -
--- NOTE | 2016-10-15 08:33 | Orthopedic Progress Note ---
Orthopedics - Subjective Interval history: Pain control fair PT still very difficult again discussed today the need for rehab he is considering even though he has been accepted to [facility] has not agreed to go at this point will plan discharge instructions for follow-up. Exam - Constitutional Vitals: Period Temp Pulse Resp BP Sys/Gates Pulse Ox Last 24 Hr 96.1 F-98.0 F 37-86 18-20 115-154/58-99 90-99 Results - Labs CBC & BMP: 10/14/16 04:08 10/14/16 04:08 Quality Measures - VTE Contraindication to Pharmacological VTE Prophylaxis: Thrombocytopenia Specialty Discharge - Follow Up or Referrals Follow up with: Marcos Zuniga Jr., MD [Physician] -
[2016-10-15] MEDS: METOPROLOL TARTRATE 50 MG TABLET PO SCH (08:56)
[2016-10-15] MEDS: predniSONE 20 MG TABLET PO SCH (08:56)
[2016-10-15] MEDS: ASPIRIN CHEW 81 MG TABLET PO SCH (08:56)
[2016-10-15] MEDS: PANTOPRAZOLE 40 MG TABLET PO SCH (08:57)
[2016-10-15] MEDS: NICOTINE 21 MG/24 HR PATCH TRANSDERM SCH (09:00)
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
--- NOTE | 2016-10-15 14:58 | Discharge Summary ---
Hospital Course - Hospital Course Hospital Course: Mr. Dueñas is a 66 year old male with past medical history of with chief complaint right heel pain after falling at his hip upon getting out of his chair , resulting in a right intertrochanteric femur fracture. Patient has been using crutches since the 80s following an accident in which he sustained a left femur fracture. He was seen by orthopedics and had intramedullary medullary nail surgery performed for his hip fracture. He had an unremarkable postoperative course he also had acute on chronic anemia due to surgical blood loss requiring blood transfusion. His past medical history is significant for chronic COPD as well as history of hypertension and diabetes. He is nebulizer treatment and bronchodilators were continued while he was in the hospital he required physical therapy after his surgery and was ambulatory with help and walker. .He was given counseling to quit smoking he also has history of obesity and obstructive sleep apnea as well. Pulmonology was following him for his COPD while he was in the hospital. Cardiology was consulted for his bigeminy and recommended continuing medical treatment. Patient has reached maximal hospital benefit and is being discharged to rehab today. - Time spent with patient Time with patient DS: Less than 30 minutes Time spent discussing smoking cessation with patient: more than 10 minutes Diagnosis - Discharge Diagnosis (1) COPD (chronic obstructive pulmonary disease) Status: Chronic (2) Hip fracture Status: Resolved Specialty Discharge - Follow Up or Referrals Follow up with: David Siegel MD [Physician] - (call as needed) Marcos Zuniga Jr., MD [Physician] - 11/04/16 8:15 am Ace Wagner MD [Physician] - (call office with room number on arrival) Discharge Plan - Discharge Medications No Action No Known Home Medications [No Known Home Medications] - Follow Up or Referral Follow Up: David Siegel MD [Physician] - (call as needed) Marcos Zuniga Jr., MD [Physician] - 11/04/16 8:15 am Ace Wagner MD [Physician] - (call office with room number on arrival) - Forms/Instructions Instructions: Open Reduction and Internal Fixation of a Leg Fracture (DC) Exam - Constitutional Vitals: Period Temp Pulse Resp BP Sys/Gates Pulse Ox Last 24 Hr 96.6 F-98.0 F 37-86 18-20 138-158/58-99 90-99 General appearance: normal weight, no acute distress - Head Head exam: Present: normal inspection, normocephalic, atraumatic - Eye Eye exam: Present: EOMI Pupils: Present: JAVED - ENT ENT exam: Present: normal exam - Neck Neck exam: Present: normal inspection - Respiratory Respiratory exam: Present: clear to auscultation bilaterally - Cardiovascular Cardiovascular exam: Present: regular rate and rhythm - GI/Abdominal GI/Abdominal exam: Present: normal bowel sounds - Extremities Exam Extremities exam: Present: normal inspection, normal capillary refill - Back Exam Back exam: Present: normal inspection - Neurological Exam Neurological exam: Present: oriented X3, normal gait - Psychiatric Psychiatric exam: Present: normal affect, normal mood - Skin Skin exam: Present: normal color, warm DS: Provider Date of admission: 10/08/16 21:50 Primary care physician: . No PCP Attending physician on admission: David Jamison MD Consults: 10/08/16 21:57 Consult to Physician [CONS] Routine Comment: Consulting Provider: Consult to Specialist Group: Orthopedic When should Consulting Provider be notified: In am Person Notified: Dr. Lizarraga Date Notified: 10/09/16 Time Notified: 07:46 Consult Notification Comment: Consult to Physician [CONS] Routine Comment: Trigeminy and bigeminy preop evaluation. Consulting Provider: Cardiology - [facility] When should Consulting Provider be notified: In am Person Notified: Dayami Date Notified: 10/09/16 Time Notified: 07:50 Consult Notification Comment: Answering service said they would notify the dinkey driver of the patient. 10/09/16 17:25 Consult to Physician [CONS] Routine Comment: hip fx, obesity, hx LILA--assist preop and post op Consulting Provider: Lorna Torres When should Consulting Provider be notified: Now Person Notified: Dr. Torres Date Notified: 10/09/16 Time Notified: 18:17 Consult Notification Comment: Dr. Torres said to get another set of ABGs and to call her if the ph was not above 7.2. She said, "I will see the patient in the morning. If Dr. Lizarraga has any questions in the morning before surgery he can call me. I am not coming up there at 6 tonight." 10/10/16 10:40 Consult to Physical Therapy [CONS] Routine Reason for Physical Therapy: Evaluate and Treat 10/11/16 12:37 Consult to Case Mgmt/Social Srvs [CONS] Routine Reason for Case Mgmt/Social Srvs: Discharge Planning Rehab Discharging clinician: Princess Muhammad MD
--- NOTE | 2016-10-15 15:07 | Discharge Summary ---
Hospital Course - Hospital Course Hospital Course: Mr. Dueñas is a 66 year old male with past medical history of with chief complaint right heel pain after falling at his hip upon getting out of his chair , resulting in a right intertrochanteric femur fracture. Patient has been using crutches since the 80s following an accident in which he sustained a left femur fracture. He was seen by orthopedics and had intramedullary medullary nail surgery performed for his hip fracture. He had an unremarkable postoperative course he also had acute on chronic anemia due to surgical blood loss requiring blood transfusion. His past medical history is significant for chronic COPD as well as history of hypertension and diabetes. He is nebulizer treatment and bronchodilators were continued while he was in the hospital he required physical therapy after his surgery and was ambulatory with help and walker. .He was given counseling to quit smoking he also has history of obesity and obstructive sleep apnea as well. Pulmonology was following him for his COPD while he was in the hospital. Cardiology was consulted for his bigeminy and recommended continuing medical treatment. Patient has reached maximal hospital benefit and is being discharged to rehab today. - Time spent with patient Time with patient DS: Less than 30 minutes Time spent discussing smoking cessation with patient: more than 10 minutes Diagnosis - Discharge Diagnosis (1) COPD (chronic obstructive pulmonary disease) Status: Chronic (2) Hip fracture Status: Resolved Specialty Discharge - Follow Up or Referrals Follow up with: David Siegel MD [Physician] - (call as needed) Marcos Zuniga Jr., MD [Physician] - 11/04/16 8:15 am Ace Wagner MD [Physician] - (call office with room number on arrival) Discharge Plan - Discharge Data Disposition: Disch/Xfer to [facility] Condition at Discharge: Stable Discharge Diet: diabetic diet Activity: resume usual activities as tolerated Hygiene: no restrictions, may shower, may tub bathe Weight Bearing at Discharge: full weight bearing Driving: not until seen by doctor Contact your physician if you experience:: fever over 101, Difficulty voiding, Redness or swelling, Nausea/Vomiting, Shortness of breath, Bleeding, pain uncontrolled by pain medications - Discharge Medications New Albuterol/Ipratropium Neb [Duoneb] 3 ml RESP TX RT Q6H #60 vial Aspirin Chew Tab 81 mg PO DAILY #30 tablet Nicotine 21 mg/24 Hr Patch [Nicoderm CQ 21 mg/24 hr Patch] 1 patch TRANSDERM DAILY #30 patch oxyCODONE/ACETAMINOPHEN 5-325 [Percocet 5-325] 2 tablet PO Q4H PRN #60 tablet PRN Reason: Pain Severe (8-10) Metoprolol Tartrate Tab [Lopressor Tab] 50 mg PO BID #60 tablet predniSONE TAB [PredniSONE] 20 mg PO DAILY #30 tablet - Follow Up or Referral Follow Up: David Siegel MD [Physician] - (call as needed) Marcos Zuniga Jr., MD [Physician] - 11/04/16 8:15 am Ace Wagner MD [Physician] - (call office with room number on arrival) - Forms/Instructions Instructions: Open Reduction and Internal Fixation of a Leg Fracture (DC) Exam - Constitutional Vitals: Period Temp Pulse Resp BP Sys/Gates Pulse Ox Last 24 Hr 96.6 F-98.0 F 37-86 18-20 138-158/58-99 90-99 General appearance: normal weight, no acute distress - Head Head exam: Present: normal inspection, normocephalic - Eye Eye exam: Present: EOMI Pupils: Present: JAVED - ENT ENT exam: Present: normal exam - Neck Neck exam: Present: normal inspection - Respiratory Respiratory exam: Present: clear to auscultation bilaterally - Cardiovascular Cardiovascular exam: Present: regular rate and rhythm - GI/Abdominal GI/Abdominal exam: Present: normal bowel sounds - Extremities Exam Extremities exam: Present: normal inspection, normal capillary refill - Back Exam Back exam: Present: normal inspection - Neurological Exam Neurological exam: Present: oriented X3 - Psychiatric Psychiatric exam: Present: normal affect, normal mood - Skin Skin exam: Present: normal color, warm DS: Provider Date of admission: 10/08/16 21:50 Primary care physician: . No PCP Attending physician on admission: David Jamison MD Consults: 10/08/16 21:57 Consult to Physician [CONS] Routine Comment: Consulting Provider: Consult to Specialist Group: Orthopedic When should Consulting Provider be notified: In am Person Notified: Dr. Lizarraga Date Notified: 10/09/16 Time Notified: 07:46 Consult Notification Comment: Consult to Physician [CONS] Routine Comment: Trigeminy and bigeminy preop evaluation. Consulting Provider: Cardiology - [facility] When should Consulting Provider be notified: In am Person Notified: Dayami Date Notified: 10/09/16 Time Notified: 07:50 Consult Notification Comment: Answering service said they would notify the germination worker of the patient. 10/09/16 17:25 Consult to Physician [CONS] Routine Comment: hip fx, obesity, hx LILA--assist preop and post op Consulting Provider: Lorna Torres When should Consulting Provider be notified: Now Person Notified: Dr. Torres Date Notified: 10/09/16 Time Notified: 18:17 Consult Notification Comment: Dr. Torres said to get another set of ABGs and to call her if the ph was not above 7.2. She said, "I will see the patient in the morning. If Dr. Lizarraga has any questions in the morning before surgery he can call me. I am not coming up there at 6 tonight." 10/10/16 10:40 Consult to Physical Therapy [CONS] Routine Reason for Physical Therapy: Evaluate and Treat 10/11/16 12:37 Consult to Case Mgmt/Social Srvs [CONS] Routine Reason for Case Mgmt/Social Srvs: Discharge Planning Rehab Discharging clinician: Princess Muhammad MD
[2016-10-15 16:12] VITALS: BP 147/74
--- NOTE | 2016-10-18 15:00 | Pulmonology Progress Note ---
Pulmonary - PN: Subj Interval history: The patient is a 66-year-old white man that had a right hip fracture. He had this repaired over the weekend. He is doing fairly well at the present time. He is an overweight smoker with diabetes and hypertension likely has some COPD. He also has a history of having cirrhosis and a GI bleed. He is doing better with his hip fracture and is moving to rehab. He says he is doing some therapy and does get fatigued easily. His shortness of breath is stable. Exam (Progress Note) - Constitutional Exam: General appearance: no acute distress, morbidly obese, he is up in the gym and doing more activity. - Head Head exam: Present: normal inspection, normocephalic - Eye Eye exam: Present: EOMI. Absent: scleral icterus Pupils: Present: JAVED - ENT ENT exam: Present: other (Has class IV Mallampati) - Neck Neck exam: Present: normal inspection. Absent: lymphadenopathy, thyromegaly - Respiratory Respiratory exam: Present: His lungs have distant breath sounds and he has fair air movement with no wheezing. - Cardiovascular Cardiovascular exam: Present: irregular rhythm. Absent: gallop, systolic murmur - GI/Abdominal GI/Abdominal exam: Present: normal bowel sounds, soft. Obese absent: organomegaly, tenderness - Extremities Exam Extremities exam: Present: other (Right hip is wrapped). Is a little swollen but no signs of phlebitis. - Neurological Exam Neurological exam: Present: alert, oriented X3, CN II-XII intact. Absent: motor sensory deficit - Psychiatric Psychiatric exam: Present: normal affect - Skin Skin exam: Present: warm, dry Results - Labs CBC & BMP: 10/14/16 04:08 10/14/16 04:08 Assessment and Plan (1) COPD (chronic obstructive pulmonary disease) Status: Chronic Assessment and plan: Patient has been a lifelong smoker and certainly has at least a component of COPD. He is doing fairly well on bronchodilators and his breathing is stable. Qualifiers: COPD type: chronic bronchitis (2) Hip fracture Status: Resolved Assessment and plan: Patient fell and had a hip fracture and had his right leg repaired. He is doing more activity and seems to have less pain. He is moving to rehab and is doing physical therapy. He still can get around very well but he is better. Qualifiers: Encounter type: initial encounter Fracture type: closed Laterality: right Qualified Code(s): S72.001A - Fracture of unspecified part of neck of right femur, initial encounter for closed fracture (3) Ventricular bigeminy Status: Acute Assessment and plan: The patient's cardiac status is been evaluated by cardiology. His cardiac status has been reasonably stable. (4) Morbid obesity Status: Chronic Assessment and plan: The patient is certainly deconditioned. (5) Obstructive sleep apnea Status: Chronic Assessment and plan: The patient likely has at least a component of sleep apnea. In the future he may need to be studied. He says he is not wearing a BiPAP mask now. (6) Tobacco abuse Status: Chronic Assessment and plan: We will try nicotine patch and see if we can get him to cut back on cigarettes. Specialty Discharge - Follow Up or Referrals Follow up with: David Siegel MD [Physician] - (call as needed) Marcos Zuniga Jr., MD [Physician] - 11/04/16 8:15 am Ace Wagner MD [Physician] - (call office with room number on arrival)
== END 2016-10-15 15:55 | DRG 480 ==
LOC: EDBD → EDUNIT# → N.ED 20:04 → N.EDINP 21:50 → SUATTDRO 21:50 → N.EDINP 22:45 → N.3E 22:58
PROVIDERS: ADMIT Internal Medicine; ATTEND Hospitalist